=== PATIENT | male | born 1995 | race Caucasian/White ===

== ENCOUNTER 2018-08-02 17:29 | Emergency (ER) | payer BC ==
[~2018-08-02] VITALS: Ht 177.8 cm; Wt 78.0 kg
[2018-08-02 17:37] VITALS: Ht 177.8 cm; Wt 78.0 kg
[2018-08-02] MEDS ORDERED: BACITRACIN 0.5%/ZINC 28.35 GM OINT TOP ONE (19:00)
[2018-08-02] MEDS ORDERED: HYDROCODONE/APAP (5/325) TAB PO ONE (19:00)
[2018-08-02] MEDS ORDERED: CEPH-443 PO (20:12)
[2018-08-02] MEDS ORDERED: HYDR-4011 PO (20:12)
[2018-08-02] MEDS ORDERED: BACI28.34 TOP (20:12)
[2018-08-02] MEDS ORDERED: IBUP-1542 PO (20:13)
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
[2018-08-02 20:36] VITALS: BP 115/64; PULSE 66; RESP 18
== END 2018-08-02 20:38 | disposition home or self-care (01) ==
LOC: FTE 17:29
DX: S80.211A Abrasion, right knee, initial encounter (principal); S99.921A Unspecified injury of right foot, initial encounter; V28.9XXA Unspecified motorcycle rider injured in noncollision transport accident in traffic accident, initial encounter
CPT/HCPCS: 73562; 73610; 73630; Z7502; Z7610